=== PATIENT | female | born 2000 | race Two or more races ===

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

== ENCOUNTER 2018-08-11 21:44 | Emergency (ER) | payer SELFPAY ==
[~2018-08-11] VITALS: Ht 157.5 cm; Wt 99.8 kg
[~2018-08-11 21:44] MED LIST: PROM12.56 PO
[2018-08-11 22:50] VITALS: BP 113/71
[2018-08-11] MEDS ORDERED: CETI10TA22 PO (23:19)
--- NOTE | 2018-08-11 23:19 | PHYS DOC ---
Past Medical History Past Medical History: No Pertinent History Past Surgical History: No Surgical History Alcohol Use: None Drug Use: None Adult General Chief Complaint Chief Complaint: SKIN RASH/ABSCESS [facility] HPI Patient is a 18 year old female who presents with a rash that has been coming and going on the left forearm and right forearm for the last 3 weeks. Patient denies any known cause for this rash. Review of Systems Review of Systems Constitutional: Denies fever or chills [] Eyes: Denies change in visual acuity, redness, or eye pain [] HENT: Denies nasal congestion or sore throat [] Respiratory: Denies cough or shortness of breath [] Cardiovascular: No additional information not addressed in HPI [] GI: Denies abdominal pain, nausea, vomiting, bloody stools or diarrhea [] : Denies dysuria or hematuria [] Musculoskeletal: Denies back pain or joint pain [] Integument: Reports rash Neurologic: Denies headache, focal weakness or sensory changes [] All other systems were reviewed and found to be within normal limits, except as documented in this note. Allergies Allergies Allergies Coded Allergies Type Severity Reaction Last Updated Verified No Known Drug Allergies 10/09/15 No Physical Exam Physical Exam Constitutional: Well developed, well nourished, no acute distress, non-toxic appearance. [] HENT: Normocephalic, atraumatic, bilateral external ears normal, oropharynx moist, no oral exudates, nose normal. [] Eyes: PERRLA, EOMI, conjunctiva normal, no discharge. [] Neck: Normal range of motion, no tenderness, supple, no stridor. [] Cardiovascular:Heart rate regular rhythm, no murmur [] Lungs & Thorax: Bilateral breath sounds clear to auscultation [] Abdomen: Bowel sounds normal, soft, no tenderness, no masses, no pulsatile masses. [] Skin: Warm, dry, patient has trace amount of petechia rash on the left dorsal wrist and left elbow. Back: No tenderness, no CVA tenderness. [] Extremities: No tenderness, no cyanosis, no clubbing, ROM intact, no edema. [] Neurologic: Alert and oriented X 3, normal motor function, normal sensory function, no focal deficits noted. [] Psychologic: Affect normal, judgement normal, mood normal. [] Current Patient Data Vital Signs Vital Signs Date Time Temp Pulse Resp B/P (MAP) Pulse Ox O2 Delivery O2 Flow Rate FiO2 08/11/18 22:50 98.3 62 14 113/71 (85) 99 Room Air 98.3 EKG EKG [] Radiology/Procedures Radiology/Procedures [] Course & Med Decision Making Course & Med Decision Making Pertinent Labs and Imaging studies reviewed. (See chart for details) This is a 18-year-old female patient presenting to the ED today complaining of a rash that keeps coming and going on bilateral upper extremities only. Patient did trace amount of rash on the left wrist and elbow. Considering the rash keeps coming and going i recommended she takes Zyrtec daily. Provided personnel psychologist for follow-up. Discharged in stable condition. Dragon Disclaimer Dragon Disclaimer This electronic medical record was generated, in whole or in part, using a voice recognition dictation system. Departure Departure Impression: Primary Impression: Rash Disposition: HOME, SELF-CARE Condition: STABLE Referrals: UNKNOWN PCP NAME (PCP) IRAM DU MD follow up in 2 weeks Patient Instructions: Rash Additional Instructions: You were seen for a rash. We provided you a personnel psychologist, follow-up with them as needed for this rash. Consider taking Zyrtec every day. Scripts Cetirizine Hcl (ZYRTEC) 10 Mg Tablet 1 TAB PO DAILY, #30 TAB 3 Refills Prov: MAGDI SHELDON APRN 08/11/18 MAGDI SHELDON APRN Aug 11, 2018 23:19
== END 2018-08-11 23:50 | disposition home or self-care (01) ==
LOC: ER 21:44
DX: R21 Rash and other nonspecific skin eruption (principal); R23.3 Spontaneous ecchymoses
CPT/HCPCS: 99282

== ENCOUNTER 2018-10-29 11:19 | Emergency (ER) | payer SELFPAY ==
[~2018-10-29] VITALS: Ht 157.5 cm; Wt 99.8 kg
[~2018-10-29 11:19] MED LIST changes: +CETI10TA22 PO
[2018-10-29 11:31] VITALS: BP 154/66
[2018-10-29] MEDS ORDERED: IPRATRPIUM/ALBUTEROL 0.5/2.5MG 3 ML NEBU. NEB ONE (12:15)
[2018-10-29] MEDS ORDERED: OXYMETAZOLINE 0.05% NASAL SPRAY 30ML BOTTLE. NS ONE (12:15)
[2018-10-29] MEDS ORDERED: predniSONE 10 MG TABLET PO ONE (12:15)
--- NOTE | 2018-10-29 12:16 | PHYS DOC ---
Past Medical History Past Medical History: No Pertinent History Past Surgical History: No Surgical History Alcohol Use: None Drug Use: None Adult General Chief Complaint Chief Complaint: COUGH HPI HPI 18-year-old female presents to ER with complaints of one week history of sinus congestion. Patient reports this morning she woke having a nonproductive cough and sore throat. Patient denies any fever or chills, earache, or difficulty swallowing. Patient reports she took Mucinex and DayQuil this morning. LMP end of September. Patient denies being daily smoker. Review of Systems Review of Systems Constitutional: Denies fever or chills [] Eyes: Denies change in visual acuity, redness, or eye pain [] HENT: Reports nasal congestion/drainage and sore throat Respiratory: Denies shortness of breath. Reports nonproductive cough Cardiovascular: No additional information not addressed in HPI [] GI: Denies abdominal pain, nausea, vomiting, bloody stools or diarrhea [] : Denies dysuria or hematuria [] Musculoskeletal: Denies back/neck pain or joint pain [] Integument: Denies rash or skin lesions [] Neurologic: Denies headache, focal weakness or sensory changes [] All other systems were reviewed and found to be within normal limits, except as documented in this note. Current Medications Current Medications Current Medications Medications (Trade) Dose Ordered Sig/Claudia Start Time Stop Time Status Last Admin Dose Admin Albuterol/ Ipratropium (Duoneb) 3 ml 1X ONCE 10/29/18 12:15 10/29/18 12:16 DC 10/29/18 12:33 3 ML Oxymetazoline HCl (Afrin) 2 spray 1X ONCE 10/29/18 12:15 10/29/18 12:16 DC 10/29/18 12:15 2 SPRAY Prednisone (Prednisone) 40 mg 1X ONCE 10/29/18 12:15 10/29/18 12:16 DC 10/29/18 12:53 40 MG Allergies Allergies Allergies Coded Allergies Type Severity Reaction Last Updated Verified No Known Drug Allergies 10/09/15 No Physical Exam Physical Exam Constitutional: Well developed, well nourished, no acute distress, non-toxic appearance. [] HENT: Normocephalic, atraumatic, mild erythema bilateral ears at TM without bulging/perf. no purulent drainage, oropharynx moist, no oral exudates- mild pharyngeal/bilateral tonsillar erythema with tonsillar swelling-no visible abscess, bilateral turbinates swollen no purulent drainage Eyes: Pupils equal, conjunctiva normal, no discharge. [] Neck: Normal range of motion, no tenderness, supple, no gross adenopathy Cardiovascular: Heart rate regular rhythm, no murmur [] Lungs & Thorax: Bilateral breath sounds clear to auscultation- diminished in bases. Respirations equal and nonlabored area patient speaking in full sentences Skin: Warm, dry, no erythema, no rash. [] Back: No tenderness, full ROM Extremities: No tenderness, no cyanosis, no clubbing, ROM intact, no edema. [] Neurologic: Alert and oriented X 3, normal motor function, normal sensory function, no focal deficits noted. [] Psychologic: Affect normal, judgement normal, mood normal. [] Current Patient Data Vital Signs Vital Signs Date Time Temp Pulse Resp B/P (MAP) Pulse Ox O2 Delivery O2 Flow Rate FiO2 10/29/18 12:37 100 Room Air 10/29/18 11:31 98.1 92 16 154/66 (95) 98.1 Lab Values Laboratory Tests Test 10/29/18 12:05 Group A Streptococcus Rapid Negative (NEGATIVE) EKG EKG [] Radiology/Procedures Radiology/Procedures [] Course & Med Decision Making Course & Med Decision Making Pertinent Labs reviewed. (See chart for details) 1300: Pt was evaluated in ER for cold like sxs with cough/sinus congestion. After duoneb tx and Afrin pt reports sxs improved. On re-eval she has increased air movement in all lung [place] w/equal nonlabored resp. Pt was given dose of PO prednisone and will be sent home with Rx to start tomorrow. Dragon Disclaimer Dragon Disclaimer This electronic medical record was generated, in whole or in part, using a voice recognition dictation system. Departure Departure Impression: Primary Impression: Cough Additional Impression: Viral syndrome Disposition: 01 HOME, SELF-CARE Condition: STABLE Referrals: UNKNOWN PCP NAME (PCP) Patient Instructions: Cough, Adult, Viral Syndrome Additional Instructions: Drink plenty of water. Tylenol and/or ibuprofen as needed for pain/fever control as directed on container. Afrin bilateral nares daily 2 sprays each nostril- don't use for more than 2-3 days. If symptoms persist follow-up with primary doctor for re-evaluation. Scripts Prednisone (PREDNISONE) 20 Mg Tablet 40 MG PO DAILY, #1 TAB 0 Refills Prov: SNOW LUIS APRN 10/29/18 Oxymetazoline Hcl (AFRIN) 30 Ml [place] 30 ML NS DAILY for sinus congestion, #1 SPRAY 0 Refills both nostrils 1-2 sprays daily- don't use for more than 2-3 days Prov: SNOW LUIS APRN 10/29/18 Problem Qualifiers SNOW LUIS APRN Oct 29, 2018 12:15
[2018-10-29] MEDS ORDERED: PRED20TA PO (13:12)
[2018-10-29] MEDS ORDERED: OXYM30SP NS (13:12)
== END 2018-10-29 13:47 | disposition home or self-care (01) ==
LOC: ER 11:19
DX: B34.9 Viral infection, unspecified (principal)
CPT/HCPCS: 87070; 87880; 94640; 99283; J7512; J7620

== ENCOUNTER 2018-12-28 11:34 | Emergency (ER) | payer SELFPAY ==
[~2018-12-28] VITALS: Ht 160 cm; Wt 99.8 kg
[~2018-12-28 11:34] MED LIST changes: +OXYM30SP NS; +PRED20TA PO
[2018-12-28 11:43] VITALS: BP 118/66
[2018-12-28] MEDS ORDERED: NAPROXEN 500 MG TABLET PO STA (11:59)
[2018-12-28] MEDS ORDERED: CYCLOBENZAPRINE 10 MG TABLET. PO ONE (12:00)
[2018-12-28] MEDS ORDERED: HYDROcodone/APAP 5/325MG 1 TAB TABLET PO ONE (12:00)
[2018-12-28] MEDS ORDERED: NAPR-514 PO (12:37)
[2018-12-28] MEDS ORDERED: METH4TAB2 PO (12:37)
[2018-12-28] MEDS ORDERED: CYCL10TA2 PO (12:37)
--- NOTE | 2018-12-28 12:37 | PHYS DOC ---
Past Medical History Past Medical History: No Pertinent History Past Surgical History: No Surgical History Alcohol Use: None Drug Use: None Adult General Chief Complaint Chief Complaint: Neck Pain HPI HPI Patient is a 18 year old female with no significant medical history presents to the ED today complaining of a throbbing 9 out of 10 bilateral neck pain that began 2 days ago. Patient states pain was worse when she got up. Patient denies any known injury. Patient states pain seems to be exacerbated by rotating her neck to the left or right side. Patient denies any nuchal rigidity. She states she is able to flex and extend the neck with no difficulties. Patient states she has been using [id number] muscle rub and Advil with no relief. Patient is smiling and laughing with family member in the room as i do the exam. Patient denies any fever, denies any chest pain or shortness of breath. Review of Systems Review of Systems Constitutional: Denies fever or chills [] Eyes: Denies change in visual acuity, redness, or eye pain [] HENT: Denies nasal congestion or sore throat [] Respiratory: Denies cough or shortness of breath [] Cardiovascular: No additional information not addressed in HPI [] GI: Denies abdominal pain, nausea, vomiting, bloody stools or diarrhea [] : Denies dysuria or hematuria [] Musculoskeletal: Reports neck pain Integument: Denies rash or skin lesions [] Neurologic: Denies headache, focal weakness or sensory changes [] All other systems were reviewed and found to be within normal limits, except as documented in this note. Current Medications Current Medications Current Medications Medications (Trade) Dose Ordered Sig/Claudia Start Time Stop Time Status Last Admin Dose Admin Acetaminophen/ Hydrocodone Bitart (Lortab 5/325) 1 tab 1X ONCE 12/28/18 12:00 12/28/18 12:02 DC 12/28/18 12:08 1 TAB Cyclobenzaprine HCl (Flexeril) 10 mg 1X ONCE 12/28/18 12:00 12/28/18 12:02 DC 12/28/18 12:08 10 MG Naproxen (Naprosyn) 500 mg 1X STAT 12/28/18 11:59 12/28/18 12:02 DC 12/28/18 12:08 500 MG Allergies Allergies Allergies Coded Allergies Type Severity Reaction Last Updated Verified No Known Drug Allergies 10/09/15 No Physical Exam Physical Exam Constitutional: Well developed, well nourished, no acute distress, non-toxic appearance. [] HENT: Normocephalic, atraumatic, bilateral external ears normal, oropharynx moist, no oral exudates, nose normal. [] Eyes: PERRLA, EOMI, conjunctiva normal, no discharge. [] Neck: Negative meningeal signs, patient able to flex and extend her neck without difficulty, slight limited range of motion noted on rotation of the neck to the left or right side, no tenderness, supple, no stridor. [] Cardiovascular:Heart rate regular rhythm, no murmur [] Lungs & Thorax: Bilateral breath sounds clear to auscultation [] Abdomen: Bowel sounds normal, soft, no tenderness, no masses, no pulsatile masses. [] Skin: Warm, dry, no erythema, no rash. [] Back: No tenderness, no CVA tenderness. [] Extremities: No tenderness, no cyanosis, no clubbing, ROM intact, no edema. [] Neurologic: Alert and oriented X 3, normal motor function, normal sensory function, no focal deficits noted. [] Psychologic: Affect normal, judgement normal, mood normal. [] Current Patient Data Vital Signs Vital Signs Date Time Temp Pulse Resp B/P (MAP) Pulse Ox O2 Delivery O2 Flow Rate FiO2 12/28/18 11:43 97.2 78 18 118/66 (83) 99 Room Air 97.2 EKG EKG [] Radiology/Procedures Radiology/Procedures [] Course & Med Decision Making Course & Med Decision Making Pertinent Labs and Imaging studies reviewed. (See chart for details) This is a 18-year-old. Patient presenting to the ED today with bilateral neck pain that began 2 days ago. Patient appears musculoskeletal. Patient is negative for meningeal signs. Will be discharged with Medrol Dosepak, cyclobenzaprine and naproxen. Follow-up with PCP in one week. Heat recommended to the neck. Dragon Disclaimer Dragon Disclaimer This electronic medical record was generated, in whole or in part, using a voice recognition dictation system. Departure Departure Impression: Primary Impression: Acute torticollis Disposition: HOME, SELF-CARE Condition: STABLE Referrals: NO PCP (PCP) follow up next week Patient Instructions: Torticollis, Acute Additional Instructions: You were evaluated in the emergency room for neck pain. Take the medicines as prescribed. Apply heat to your neck. We encourage you to take the neck through full range of motion several times a day. Follow-up with your doctor in one week. Scripts Naproxen (NAPROXEN) 500 Mg Tablet 1 TAB PO BID, #60 TAB 1 Refill Prov: MAGDI SHELDON APRN 12/28/18 Methylprednisolone (MEDROL) 4 Mg Tab.ds.pk 1 PKG PO UD, #1 PKG Prov: MAGDI SHELDON APRN 12/28/18 Cyclobenzaprine Hcl (CYCLOBENZAPRINE HCL) 10 Mg Tablet 1 TAB PO TID, #30 TAB Prov: MAGDI SHELDON APRN 12/28/18 MAGDI SHELDON APRN Dec 28, 2018 12:37
== END 2018-12-28 13:06 | disposition home or self-care (01) ==
LOC: ER 11:34
DX: M43.6 Torticollis (principal)
CPT/HCPCS: 99284

== ENCOUNTER 2019-02-23 12:18 | Emergency (ER) | payer SELFPAY ==
[~2019-02-23] VITALS: Ht 154.9 cm; Wt 99.8 kg
[~2019-02-23 12:18] MED LIST changes: +CYCL10TA2 PO; +METH4TAB2 PO; +NAPR-514 PO; -PROM12.56 PO; +PROM12.58 PO
--- NOTE | 2019-02-23 13:43 | PHYS DOC ---
Past Medical History Past Medical History: No Pertinent History Past Surgical History: No Surgical History Alcohol Use: None Drug Use: None Adult General Chief Complaint Chief Complaint: Neck Pain HPI HPI Patient is a 18 year old female with no significant medical history who presents to the ED today complaining of 6 out of 10 sharp left sided neck pain intermittently since December 2018. Patient states she has already been evaluated for this pain. She states she continues to have the pain worse when she is lifting boxes at work and turning her neck to the left side. She is in the ED with paperwork from her job requesting requesting we fill the paperwork showing if she can return to work or not. Patient denies any known injury. Denies any numbness to bilateral upper extremities. Review of Systems Review of Systems Constitutional: Denies fever or chills [] Eyes: Denies change in visual acuity, redness, or eye pain [] HENT: Denies nasal congestion or sore throat [] Respiratory: Denies cough or shortness of breath [] Cardiovascular: No additional information not addressed in HPI [] GI: Denies abdominal pain, nausea, vomiting, bloody stools or diarrhea [] : Denies dysuria or hematuria [] Musculoskeletal: Reports left lateral neck pain Integument: Denies rash or skin lesions [] Neurologic: Denies headache, focal weakness or sensory changes [] All other systems were reviewed and found to be within normal limits, except as documented in this note. Allergies Allergies Allergies Coded Allergies Type Severity Reaction Last Updated Verified No Known Drug Allergies 10/09/15 No Physical Exam Physical Exam Constitutional: Well developed, well nourished, no acute distress, non-toxic appearance. [] HENT: Normocephalic, atraumatic, bilateral external ears normal, oropharynx moist, no oral exudates, nose normal. [] Eyes: PERRLA, EOMI, conjunctiva normal, no discharge. [] Neck: Normal range of motion, no tenderness, supple, no stridor. [] Cardiovascular:Heart rate regular rhythm, no murmur [] Lungs & Thorax: Bilateral breath sounds clear to auscultation [] Abdomen: Bowel sounds normal, soft, no tenderness, no masses, no pulsatile masses. [] Skin: Warm, dry, no erythema, no rash. [] Back: No tenderness, no CVA tenderness. [] Extremities: No tenderness, no cyanosis, no clubbing, ROM intact, no edema. [] Neurologic: Alert and oriented X 3, normal motor function, normal sensory function, no focal deficits noted. [] Psychologic: Affect normal, judgement normal, mood normal. [] Current Patient Data Vital Signs Vital Signs Date Time Temp Pulse Resp B/P (MAP) Pulse Ox O2 Delivery O2 Flow Rate FiO2 02/23/19 12:26 98.1 68 16 110/65 (80) 100 Room Air 98.1 EKG EKG [] Radiology/Procedures Radiology/Procedures []PROCEDURE: CERVICAL SPINE 2-3V 3 views of the cervical spine 02/23/2019 INDICATION: Neck pain COMPARISON STUDY: None FINDINGS: Exam is limited by poor visualization of the cervicothoracic junction. Visualized portions of the cervical spine demonstrate no evidence of acute fracture or alignment abnormality. Vertebral body heights and disc spaces appear grossly preserved. IMPRESSION: No radiographic evidence of acute osseous of normality Electronically signed by: Wisam Villegas MD (02/23/2019 1:44 PM) [facility] DICTATED and SIGNED BY: WISAM VILLEGAS MD DATE: 02/23/19 1344 Course & Med Decision Making Course & Med Decision Making Pertinent Labs and Imaging studies reviewed. (See chart for details) This is a 18-year-old female patient presented to the ED today with left lateral neck pain, symptoms began in December, no known injury. This is a second visit for this. Cervical spine x-rays were done, negative for any acute findings. Patient has paperwork from her job. She is requesting we fill the paperwork and determine if she can return to work or not. Paperwork was done requesting patient return to work. Tylenol/ Motrin for pain. Follow-up with PCP in 1-2 weeks. Dragon Disclaimer Dragon Disclaimer This electronic medical record was generated, in whole or in part, using a voice recognition dictation system. Departure Departure Impression: Primary Impression: Neck pain on left side Disposition: 01 HOME, SELF-CARE Condition: STABLE Referrals: NO PCP (PCP) follow up with your doctor in 1-2 weeks Patient Instructions: Musculoskeletal Pain Additional Instructions: You were evaluated in the emergency for neck pain. We could not find any acute cause for your neck pain. Please return to work and continue your normal activities. You can take [id number] remedies including Tylenol or Motrin as needed for pain. Follow-up with your own doctor in 1-2 weeks. MAGDI SHELDON APRN Feb 23, 2019 13:43
--- NOTE | 2019-02-23 13:47 | RAD ---
3 views of the cervical spine 02/23/2019 INDICATION: Neck pain COMPARISON STUDY: None FINDINGS: Exam is limited by poor visualization of the cervicothoracic junction. Visualized portions of the cervical spine demonstrate no evidence of acute fracture or alignment abnormality. Vertebral body heights and disc spaces appear grossly preserved. IMPRESSION: No radiographic evidence of acute osseous of normality Electronically signed by: Wisam Sow MD (02/23/2019 1:44 PM) [facility]
[2019-02-23 14:08] VITALS: BP 101/65
== END 2019-02-23 14:08 | disposition home or self-care (01) ==
LOC: ER 12:18
DX: M54.2 Cervicalgia (principal)
CPT/HCPCS: 72040; 99284

== ENCOUNTER 2019-03-14 06:59 | Emergency (ER) | payer SELFPAY ==
[~2019-03-14] VITALS: Ht 154.9 cm; Wt 99.8 kg
[2019-03-14 07:36] VITALS: BP 134/71
--- NOTE | 2019-03-14 08:19 | RAD ---
EXAM: Right fourth finger, 3 views. HISTORY: Pain. COMPARISON: None. FINDINGS: 3 views of the right fourth finger are obtained. There is a tiny ossific density along the distal radial aspect of the fourth proximal phalanx. This may be a tiny displaced fracture fragment. IMPRESSION: Tiny ossific density adjacent to the distal radial aspect of the fourth proximal phalanx. This may be due to a tiny displaced fracture fragment. Correlate for point tenderness in this location. Electronically signed by: Elsa Locke MD (03/14/2019 8:16 AM) [facility]
--- NOTE | 2019-03-14 08:31 | PHYS DOC ---
Past Medical History Past Medical History: No Pertinent History Past Surgical History: No Surgical History Alcohol Use: None Drug Use: None Adult General Chief Complaint Chief Complaint: FINGER INJURY [facility] HPI Patient is a 18 year old right-handed female who presents with pinning of injury to left ring finger. Patient states he was playing with his brother and jammed her left ring finger last night with edema and pain in her finger. Patient states she applied ice on her finger and took Advil at 6 AM today with partial improvement of pain. Patient states she is not able to use her finger because of erythema and pain. Patient denies focal neuro deficit and other injuries. Review of Systems Review of Systems Constitutional: Denies fever or chills [] Eyes: Denies change in visual acuity, redness, or eye pain [] HENT: Denies nasal congestion or sore throat [] Respiratory: Denies cough or shortness of breath [] Cardiovascular: No additional information not addressed in HPI [] GI: Denies abdominal pain, nausea, vomiting, bloody stools or diarrhea [] : Denies dysuria or hematuria [] Musculoskeletal: Denies back pain, reports joint pain [] Integument: Denies rash or skin lesions [] Neurologic: Denies headache, focal weakness or sensory changes [] Endocrine: Denies polyuria or polydipsia [] All other systems were reviewed and found to be within normal limits, except as documented in this note. Allergies Allergies Allergies Coded Allergies Type Severity Reaction Last Updated Verified No Known Drug Allergies 10/09/15 No Physical Exam Physical Exam Constitutional: Well developed, well nourished, mild distress, non-toxic appearance. [] HENT: Normocephalic, atraumatic. Eyes: PERRLA, EOMI, conjunctiva normal, no discharge. [] Neck: Normal range of motion, no tenderness, supple, no stridor. [] Cardiovascular:Heart rate regular rhythm, no murmur [] Lungs & Thorax: Bilateral breath sounds clear to auscultation [] Extremities: Left index finger with moderate edema and painful range of motion with tenderness in PIP and DIP without deformity or neurovascular deficit.] Neurologic: Alert and oriented X 3, normal motor function, normal sensory function, no focal deficits noted. [] Psychologic: Affect normal, judgement normal, mood normal. [] Current Patient Data Vital Signs Vital Signs Date Time Temp Pulse Resp B/P (MAP) Pulse Ox O2 Delivery O2 Flow Rate FiO2 03/14/19 07:36 98.2 94 20 134/71 (92) 98 Room Air 98.2 EKG EKG [] Radiology/Procedures Radiology/Procedures [facility] [address] [place] [address] IMAGING REPORT Signed PATIENT: POONAM KWON ACCOUNT: [id number] : 2000 LOCATION: ER AGE: 18 SEX: F EXAM STATUS: REG ER ORD. PHYSICIAN: ANTONIETA SOLIMAN MD REASON: FELL 03/13/19, LEFT RING FINGER "POPPED" OUT OF PLACE, CONTINUED PAIN SINCE PROCEDURE: FINGER(S) LEFT EXAM: Right fourth finger, 3 views. HISTORY: Pain. COMPARISON: None. FINDINGS: 3 views of the right fourth finger are obtained. There is a tiny ossific density along the distal radial aspect of the fourth proximal phalanx. This may be a tiny displaced fracture fragment. IMPRESSION: Tiny ossific density adjacent to the distal radial aspect of the fourth proximal phalanx. This may be due to a tiny displaced fracture fragment. Correlate for point tenderness in this location. Electronically signed by: Elsa Olsen MD (03/14/2019 8:16 AM) [facility] DICTATED and SIGNED BY: ELSA OLSEN MD DATE: 03/14/19815 Course & Med Decision Making Course & Med Decision Making Pertinent Imaging studies reviewed. (See chart for details) Evaluation of patient in ER showed 18-year-old female patient with injury to left ring finger since last night. X-ray showed question able small avulsion fracture of proximal phalanx. Aluminium foam splint was applied and patient was advised to follow up with her primary care physician or bonding agent orthopedic physician. Aleksandra Disclaimer Dragon Disclaimer This electronic medical record was generated, in whole or in part, using a voice recognition dictation system. Departure Departure Impression: Primary Impression: Proximal phalanx fracture of finger Additional Impressions: Contusion of finger of left hand Finger strain Disposition: HOME, SELF-CARE (829) Condition: STABLE Referrals: NO PCP (PCP) ELENI LAIRD MD Patient Instructions: Finger Sprain Additional Instructions: Apply ice on your finger, continue ibuprofen Follow-up with bonding agent orthopedic physician in 3-5 days Return to ER if not getting better Scripts Ibuprofen (IBUPROFEN) 800 Mg Tablet 800 MG PO PRN Q8HRS PRN for INFLAMMATION, #20 TAB Prov: ANTONIETA SOLIMAN MD 03/14/19 Problem Qualifiers Additional Impressions: Contusion of finger of left hand Encounter type: initial encounter Finger: ring finger Damage to nail status: without damage Qualified Codes: S60.042A - Contusion of left ring finger without damage to nail, initial encounter ANTONIETA SOLIMAN MD March 14, 2019 08:31
[2019-03-14] MEDS ORDERED: IBUP-1060 PO (08:36)
== END 2019-03-14 08:54 | disposition home or self-care (01) ==
LOC: ER 06:59
DX: S62.615A Displaced fracture of proximal phalanx of left ring finger, initial encounter for closed fracture (principal); W23.0XXA Caught, crushed, jammed, or pinched between moving objects, initial encounter; Y93.89 Activity, other specified; Y92.89 Other specified places as the place of occurrence of the external cause; Y99.8 Other external cause status
CPT/HCPCS: 29130; 73140; 99284-25

== ENCOUNTER 2021-08-24 15:48 | Emergency (ER) | payer SELFPAY ==
[~2021-08-24] VITALS: Ht 157.5 cm; Wt 113.6 kg
[~2021-08-24 15:48] MED LIST changes: -CETI10TA22 PO; +CETI10TA74 PO; +IBUP-1060 PO; -OXYM30SP NS; +OXYM30SP25 NS
[2021-08-24 16:00] VITALS: BP 147/66
[2021-08-24] MEDS ORDERED: LIDOCAINE 1% Multi-Dose 20 ML VIAL. INJ ONE (16:30)
--- NOTE | 2021-08-24 16:43 | PHYS DOC ---
Past Medical History Past Medical History: No Pertinent History (CED MEDLEY INPATIENT PHARMACIST) Past Surgical History: Cholecystectomy (CED MEDLEY INPATIENT PHARMACIST) Smoking Status: Never Smoker Alcohol Use: None Drug Use: None (CED MEDLEY APRN) General Adult EDM: Chief Complaint: FOOT INJURY PAIN HPI: HPI: Patient is a 21 year old female who presents with with 1 week of right pad of foot pain with a nickel sized elevated area that is tender. Appears to be a fluid pocket underneath. Patient denies injury or stepping on anything that she knows of. She denies numbness or tingling, coolness of extremity, fever, focal weakness, (CED MEDLEY INPATIENT PHARMACIST) Review of Systems: Review of Systems: Constitutional: Denies fever or chills. [] Eyes: Denies change in visual acuity. [] HENT: Denies nasal congestion or sore throat. [] Respiratory: Denies cough or shortness of breath. [] Cardiovascular: Denies chest pain or edema. [] GI: Denies abdominal pain, nausea, vomiting, bloody stools or diarrhea. [] : Denies dysuria. [] Musculoskeletal: Denies back pain or joint pain. + Left foot pain [] Integument: Denies rash. + Foot abscess [] Neurologic: Denies headache, focal weakness or sensory changes. [] Endocrine: Denies polyuria or polydipsia. [] Lymphatic: Denies swollen glands. [] Psychiatric: Denies depression or anxiety. [] (CED MEDLEY APRN) Heart Score: C/O Chest Pain: No (CED MEDLEY INPATIENT PHARMACIST) Current Medications: Current Medications Medications (Trade) Dose Ordered Sig/[facility] Start Time Stop Time Status Last Admin Dose Admin Lidocaine HCl (Lidocaine 1% 20ml Vial) 20 ml 1X ONCE 08/24/21 16:30 08/24/21 16:31 DC (CED MEDLEY INPATIENT PHARMACIST) Allergies: Allergies: Allergies Coded Allergies Type Severity Reaction Last Updated Verified No Known Drug Allergies 10/09/15 No (CED MEDLEY INPATIENT PHARMACIST) Physical Exam: PE: Constitutional: Well developed, well nourished, no acute distress, non-toxic appearance. [] HENT: Normocephalic, atraumatic, bilateral external ears normal, oropharynx moist, no oral exudates, nose normal. [] Eyes: PERRLA, EOMI, conjunctiva normal, no discharge. [] Neck: Normal range of motion, no tenderness, supple, no stridor. [] Cardiovascular:Heart rate regular rhythm, no murmur [] Lungs & Thorax: Bilateral breath sounds clear to auscultation [] Abdomen: Bowel sounds normal, soft, no tenderness, no masses, no pulsatile masses. [] Skin: Warm, dry, no erythema, no rash. Pad of left foot raised nickel sized area with a fluid pocket underneath. [] Back: No tenderness, no CVA tenderness. [] Extremities: Pad of left foot tenderness, no cyanosis, no clubbing, ROM intact, no edema. [] Neurologic: Alert and oriented X 3, normal motor function, normal sensory function, no focal deficits noted. [] Psychologic: Affect normal, judgement normal, mood normal. [] (CED MEDLEY APRN) Current Patient Data: Vital Signs: Vital Signs Date Time Temp Pulse Resp B/P (MAP) Pulse Ox O2 Delivery O2 Flow Rate FiO2 08/24/21 16:00 98.2 98 18 147/66 (93) 99 Room Air 98.2 (CED MEDLEY APRN) EKG: EKG: [] (CED MEDLEY APRN) Radiology/Procedures: Radiology/Procedures: [] Impression: [facility] [address] [place], [place] [id number] IMAGING REPORT Signed PATIENT: POONAM KWON LACCOUNT: [id number] : 2000 LOCATION: ER AGE: 21 SEX: F EXAM STATUS: PRE ER ORD. PHYSICIAN: CED MEDLEY APRN REASON: bottom of foot tenderness PROCEDURE: FOOT RIGHT 3V Exam: Right foot 3 views INDICATION: Bilateral foot tenderness TECHNIQUE: Frontal, lateral oblique views of the right foot Comparisons: None FINDINGS: Bone mineralization is normal. No acute or healed fractures. Soft tissues are u nremarkable. Joint spaces are well-maintained. IMPRESSION: No acute osseous abnormality Electronically signed by: Kaitlyn Blandon MD (08/24/2021 4:48 PM) [facility] DICTATED and SIGNED BY: KAITLYN BLANDON MD DATE: 08/24/21 [id number] (CED MEDLEY APRN) Course & Med Decision Making: Course & Med Decision Making Pertinent Labs and Imaging studies reviewed. (See chart for details) See HPI. Alert and oriented x4. Ambulatory steady gait. Speaks in full clear sentences. Pedal pulse strong present. Cap refill less than 2 seconds. Can wiggle her toes. Pad of foot tenderness to a quarter sized elevated area with a fluid pocket underneath. The area is numbed with 1% lidocaine. I poked the area with a 20-gauge needle and a small amount of purulent fluid was drained. Patient tolerated well. She is placed on antibiotic and follow-up with her primary care provider in the next couple weeks as scheduled. [] (CED MEDLEY APRN) Dragon Disclaimer: Dragon Disclaimer: This electronic medical record was generated, in whole or in part, using a voice recognition dictation system. (CED MEDLEY APRN) Departure Departure Impression: Primary Impression: Foot infection Disposition: 01 HOME / SELF CARE / HOMELESS Condition: STABLE Referrals: NO PCP (PCP) Patient Instructions: Wound Infection Additional Instructions: Follow-up with your primary care provider. Use warm water soaks with Epson salt as many times a day and get the water as hot as you can stand it without burning yourself. Take antibiotic as prescribed. Scripts Cephalexin (KEFLEX) 500 Mg Capsule 1 CAP PO QID, #40 CAP Prov: CED MEDLEY APRN 08/24/21 Attending Signature Attending Signature I have reviewed the PA/APPLIANCES SAMPLE MAKER's note and plan of care. I was available for consultation as needed during the patient's visit in the emergency department. I agree with the clinical impression, plan, and disposition. (CLAUDETTE BOTELLO DO) CED MEDLEY APRN Aug 24, 2021 16:43 CLAUDETTE BOTELLO DO Aug 25, 2021 06:52
--- NOTE | 2021-08-24 16:50 | RAD ---
Exam: Right foot 3 views INDICATION: Bilateral foot tenderness TECHNIQUE: Frontal, lateral oblique views of the right foot Comparisons: None FINDINGS: Bone mineralization is normal. No acute or healed fractures. Soft tissues are unremarkable. Joint spa bee are well-maintained. IMPRESSION: No acute osseous abnormality Electronically signed by: Kaitlyn Gutierrez MD (08/24/2021 4:48 PM) [facility]
[2021-08-24] MEDS ORDERED: CEPH500C PO (17:47)
== END 2021-08-24 18:11 | disposition home or self-care (01) ==
LOC: ER 15:48
DX: L08.9 Local infection of the skin and subcutaneous tissue, unspecified (principal); M79.671 Pain in right foot
CPT/HCPCS: 10160; 73630; 99284; J3490